=== PATIENT | male | born 1955 | race Caucasian/White ===

== ENCOUNTER 2019-12-24 07:18 | Emergency (ER) | payer OTHER, SELFPAY ==
[2019-12-24 07:18] VITALS: BP 149/89; PULSE 81; RESP 16; TEMP 36.7; O2SAT 98; BMI 27.3
--- NOTE | 2019-12-24 07:30 | CT_ITS ---
STUDY: CT ABDOMEN AND PELVIS WITH CONTRAST REASON FOR EXAM: Male, 64 years old. FELL DOWN STEPS YESTERDAY -- PAIN LEFT FLANK RADIATION DOSAGE (If Supplied By Facility): CTDIvol = ( 16.05 ) mGy, DLP = ( 1097.54 ) mGycm TECHNIQUE: Transaxial images were obtained from the dome of the diaphragm to the symphysis pubis without oral contrast. IV 100mL Isovue-300 was administered. Sagittal and coronal images were reconstructed. Individualized dose optimization techniques were used for this CT. COMPARISON: None. FINDINGS: Increased markings are seen in the right middle lobe with areas of confluence suggestive of atelectasis and infiltrate/scarring. Coronary artery calcification. There is decreased attenuation of the liver consistent with steatosis. There are multiple small layering gallstones. Normal spleen. Normal pancreas. Normal bilateral adrenal glands. Normal right kidney. There is a 6.3 cm x 7.1 cm cyst in the mid inferior portion of the left kidney. There is a small hiatal hernia. Normal small intestine. Normal colon. The appendix is visualized and appears normal. There is diffuse atherosclerotic calcification of the abdominal aorta, without a demonstrated aneurysm. Normal inferior vena cava. Normal retroperitoneum. Normal urinary bladder. There is enlargement of the prostate gland. It measures 5.6 cm x 4.2 cm. Central calcification is seen. There is a left-sided inguinal hernia containing adipose tissue. There are diffuse degenerative changes of the visualized lumbar spine. CT/Abdomen/Pelvis W IV Cont ONLY IMPRESSION: Right middle lobe atelectasis/infiltrate versus chronic scarring. Fatty infiltration of the liver. Multiple small layering gallstones. 6.3 cm x 7.1 cm cyst in the mid inferior portion of the left kidney. Electronically Signed: Lawrence Euceda, at 9:10 EST , Service support ,
[2019-12-24 07:45] LABS: Absolute Lymphocyte Count 1.62 X10^3/uL (0.83-4.51); Absolute Neutrophil Count 5.6 X10^3/uL (2.0-7.7); Basophil# 0.05 X10^3/uL; Basophil% 0.6 % (0-1); Eosinophil# 0.12 X10^3/uL; Eosinophils% 1.4 % (0-5); Hematocrit 45.7 % (40-54); Hemoglobin 16.2 g/dL (13.0-16.5); Lymphocyte # 1.62 X10^3/ul (4.0); Lymphocyte % 19.2 % (19-41); Mean Corp Hgb Conc 35.4 g/dL (32-36); Mean Corpuscular Hgb 30.6 pg (27.0-32.0); Mean Corpuscular Volume 86.2 fL (80-94); Mean Platelet Vol. 9.9 fl (6.2-12.0); Monocyte# 1.02 X10^3/uL; Monocyte% 12.1 % (0-10); NRBC Flagged by Analyzer 0 % (0-5); Neutrophil # 5.61 X10^3/uL (2.7-7.7); Neutrophil % 66.3 % (47-70); Platelet Count 288 K/mm3 (150-450); RBC Distribution Width CV 11.9 % (11.6-14.6); RBC Distribution Width SD 37.2 fl (35.1-43.9); White Blood Count 8.5 K/mm3 (4.4-11.0)
[2019-12-24] MEDS: 0.9% Normal Saline 1,000 ML 150 ML IV (07:45)
[2019-12-24 08:07] LABS: Anion Gap 5 (5-15); BUN 13 mg/dL (7-18); BUN/Creat Ratio 14.2 RATIO (10-20); Calcium,Total 8.8 mg/dL (8.5-10.1); Chloride 105 mmol/L (98-107); Creatinine, Serum 0.91 mg/dL (0.70-1.30); EST Glomerular Filtration Rate 88 mL/min (>60); Est Glom Filt Rate - Afr Amer 107 mL/min (>60); Estimated Creatinine Clearance 96.73 ml/min; Glucose 182 mg/dL (74-106); Sodium Level 138 mmol/L (136-145)
--- NOTE | 2019-12-24 08:36 | RAD_ITS ---
STUDY: X-RAY - UNILATERAL RIBS ( LEFT ) WITH CHEST REASON FOR EXAM: Male, 64 years old. Pt. Fell, hit his back, pain mid posterior ribs radiating to laterally TECHNIQUE - RIBS: 4 view(s) of the ribs. TECHNIQUE - CHEST: Single PA view of the chest. COMPARISON: None. FINDINGS - RIBS: There is evidence of healed left sixth and seventh rib fractures anterolaterally. FINDINGS - CHEST: Increased markings are seen in the right middle lobe. This may represent either atelectasis and/or infiltrate. There is no demonstrated pleural abnormality. Sternal cerclage wires and vascular clips are present from a prior sternotomy and coronary artery bypass graft procedure (CABG). Normal mediastinum and cherry. Normal visualized pulmonary arteries. There is atherosclerotic calcification of the aortic arch with tortuosity. There are diffuse degenerative changes of the visualized thoracic spine. Normal visualized ribs, clavicles, and shoulders. There is no demonstrated abnormality of the visualized soft tissue structures of the upper abdomen. RAD/Ribs Uni Min 3V w/PA Chest IMPRESSION: RIBS: Healed left rib fractures. CHEST: Increased markings in the right middle lobe suggestive of infiltrate and/or atelectasis. Electronically Signed: Lawrence Euceda, at 9:06 EST , Service support ,
[2019-12-24 08:58] LABS: Bacteria 0 SEEN /hpf (None Seen); Mucous, Urine 0 SEEN /hpf (<or=2+); Red Blood Cells-Urine 0 SEEN /hpf (0-5); White Blood Cells 0 SEEN /hpf (0-5)
[2019-12-24 09:00] LABS: Color, Urine Yellow (Yellow); Glucose, Dipstick Normal (Normal); Ketone-Dipstick Negative (Negative); Leukocyte Esterase-Dipstick Negative /ul (Negative); Nitrite-Dipstick Negative (Negative); Occult Blood-Urine Negative /ul (Negative); Protein-Dipstick 15 mg/dl (Negative); Urine Bilirubin Dipstick Negative (Negative); Urine Clarity Sl. Cloudy (Clear); Urine Urobilinogen Normal (Normal); Urine pH 6.5 (5.0 - 8.0)
[2019-12-24 09:10] LABS: Squamous Epithelial Cells - UA 0-5 SEEN /hpf (0-5)
--- NOTE | 2019-12-24 09:29 | ED.DCSUM_ITS ---
- ER Visit Summary Date of Service: 12/24/19 Chief Complaint: [Fall with back injury] History of Present Illness: The patient is a 64 M [presents to the emergency department after sustaining a fall around 7 PM last evening. Patient states that he was coming down the steps and socks when he slipped and fell landing directly onto his back and then tumbling down about 3 or 4 steps. Patient rates his pain a 4 out of 10 at rest but with movement rates it a 9 out of 10. Patient has a dull ache that then with movement causes sharp stabbing and throbbing type pain. Patient denies any pain rating down his legs. He denies numbness or tingling in extremities. Denies striking his head or loss of consciousness. He denies any neck pain. Patient does have history of coronary artery disease and history of hypertension. Patient does not take any blood thinners.] Physical Examination: [HEENT-PERRLA, EOMI. Cranial nerves II through XII grossly intact. TMs clear. Mucous membranes moist. No adenopathy. Cardiovascular-regular rate and rhythm without murmur or ectopy Lungs-clear to auscultation, chest wall stable without crepitus or subcu emphysema Abdomen-normoactive bowel sounds, soft, nontender, no rebound or rigidity, no peritoneal signs. Back exam-patient has tenderness to palpation over the left ribs diffusely. No ecchymosis or bruising is noted over this area. Patient does have tenderness palpation over the lower thoracic spine and lumbar spine diffusely. Negative straight leg raises. Deep tendon reflexes are plus 2 out of 4 bilaterally at the patella and Achilles. Patient has normal 5 extension. Extremities-intact ?4, normal range of motion, normal pulses, atraumatic] Test Results: [CBC with it was normal. Chemistries normal. Urinalysis normal. X-rays of the left ribs showed old healed fractures and a questionable right m iddle lobe infiltrate versus atelectasis. CT scan of the abdomen pelvis showed a left renal cyst as well as again right middle lobe infiltrate versus scar and atelectasis.] Emergency Department Course and Treatment: [Patient does states that he has had a cough for about 2 weeks and continues to cough although he thinks it might get a little bit better. And at times bringing up some sputum. He was treated with Levaquin in the emergency department. He denies anything for pain initially.] Treatment Plan: We will be given a prescription for few [place] for pain. Patient also will be started on Levaquin for 5 days. [] Disposition: [Discharged home in stable condition] Impression: [Mechanical fall Contusion back ] This note was generated with [employer] dictation software. It may contain incorrect words, spelling, and punctuation that were not noted in review of the chart prior to signing ED Disposition - Plan for ED Patient: Referrals: Fam Tanner DO [Primary Care Provider] -
--- NOTE | 2019-12-24 09:32 | ED.DEP ---
ED Disposition - Plan for ED Patient: Instructions: FALL, Mechanical, CONTUSION, Back, PNEUMONIA (Adult) Prescriptions: Levofloxacin [Levaquin] 750 mg PO DAILY #4 tab Prescription Printed Hydrocodone Bitart/Apap 5-325 [[place] 5MG-325MG] 1 tab PO Q4H PRN PRN 2 Days #10 tab PRN Reason: Pain Prescription Printed Referrals: Fam Tanner DO [Primary Care Provider] - 5-7 Days
[2019-12-24 09:58] VITALS: BP 140/80; PULSE 80; RESP 18; O2SAT 97
== END 2019-12-24 10:00 | disposition home or self-care (01) ==
LOC: ED 07:48
PROVIDERS: Emergency Provider Emergency Medicine; PCP Student in an Organized Health Care Education/Training Program
DX: S30.0XXA Contusion of lower back and pelvis, initial encounter (principal); W10.9XXA Fall (on) (from) unspecified stairs and steps, initial encounter; Y93.01 Activity, walking, marching and hiking; J18.9 Pneumonia, unspecified organism; I25.10 Atherosclerotic heart disease of native coronary artery without angina pectoris; I10 Essential (primary) hypertension
CPT/HCPCS: 71101; 74177; 80048; 81001; 85025; 96360; 96361; 99283; Q9967

== ENCOUNTER 2021-01-21 10:31 | Outpatient (RCR) | payer OTHER, SELFPAY ==
[2021-01-21] MEDS: COVID-19 VACC, MRNA(PFIZER)/PF 30 MCG/0.3 ML SYRINGE IM (07:41)
[2021-02-11] MEDS: COVID-19 VACC, MRNA(PFIZER)/PF 30 MCG/0.3 ML SYRINGE IM (07:33)
== END 2021-01-21 23:59 ==
LOC: IMMUN 10:31
PROVIDERS: PCP Student in an Organized Health Care Education/Training Program; Visit Provider Family Medicine
DX: Z23 Encounter for immunization (principal)
CPT/HCPCS: 0001A; 0002A